=== PATIENT | female | born 1950 | race Caucasian/White ===

== ENCOUNTER 2019-10-13 08:30 | Outpatient (RCR) | payer MEDICAID, SELFPAY | END 2019-10-13 23:59 | disposition home or self-care (01) | LOC: ANHAUDIO 08:30 | PROVIDERS: PCP Physician Assistant; Visit Provider Physician Assistant | DX: Z46.1 Encounter for fitting and adjustment of hearing aid (principal) | CPT/HCPCS: 99199 ==

== ENCOUNTER 2020-02-04 08:44 | Outpatient (RCR) | payer MEDICAID, SELFPAY | END 2020-02-04 23:59 | disposition home or self-care (01) | LOC: ANHAUDIO 08:44 | PROVIDERS: PCP Physician Assistant; Visit Provider Physician Assistant | DX: Z46.1 Encounter for fitting and adjustment of hearing aid (principal) | CPT/HCPCS: 99199 ==

== ENCOUNTER 2020-09-17 12:06 | Outpatient (RCR) | payer MEDICAID, SELFPAY | END 2020-12-16 23:59 | disposition home or self-care (01) | LOC: ANHBWCAUD 12:06 | PROVIDERS: PCP Physician Assistant; Visit Provider Physician Assistant | DX: Z46.1 Encounter for fitting and adjustment of hearing aid (principal) | CPT/HCPCS: 99199 ==

== ENCOUNTER 2021-04-05 10:20 | Outpatient (RCR) | payer MEDICAID, SELFPAY | END 2021-07-04 23:59 | disposition home or self-care (01) | LOC: ANHBWCAUD 10:20 | PROVIDERS: PCP Physician Assistant; Visit Provider Physician Assistant | DX: Z46.1 Encounter for fitting and adjustment of hearing aid (principal) | CPT/HCPCS: 99199 ==

== ENCOUNTER 2022-02-21 11:11 | Outpatient (RCR) | payer MEDICARE, MEDICAID, SELFPAY | END 2022-05-22 23:59 | disposition home or self-care (01) | LOC: ANHBWCAUD 11:11 | PROVIDERS: PCP Physician Assistant; Visit Provider Physician Assistant | DX: Z46.1 Encounter for fitting and adjustment of hearing aid (principal) | CPT/HCPCS: V5014 ==

== ENCOUNTER 2022-07-11 09:43 | Outpatient (RCR) | payer MEDICARE, MEDICAID, SELFPAY | END 2022-10-09 23:59 | disposition home or self-care (01) | LOC: ANHBWCAUD 09:43 | PROVIDERS: PCP Physician Assistant; Visit Provider Otolaryngology | DX: Z46.1 Encounter for fitting and adjustment of hearing aid (principal); H91.93 Unspecified hearing loss, bilateral | CPT/HCPCS: 99199 ==

== ENCOUNTER 2023-01-23 13:20 | Outpatient (CLI) | payer MEDICARE, MEDICAID, SELFPAY | END 2023-01-23 13:21 | disposition home or self-care (01) | LOC: ANHBWCAUD 13:22 | PROVIDERS: PCP Physician Assistant; Visit Provider Otolaryngology | DX: H90.3 Sensorineural hearing loss, bilateral (principal) | CPT/HCPCS: 92557; 92567 ==

== ENCOUNTER 2023-02-06 13:30 | Outpatient (RCR) | payer SELFPAY | END 2023-04-23 23:59 | disposition home or self-care (01) | LOC: ANHBWCAUD 13:30 | PROVIDERS: PCP Physician Assistant; Visit Provider Otolaryngology | DX: Z46.1 Encounter for fitting and adjustment of hearing aid (principal) | CPT/HCPCS: 99199; V5261; V5264 ==

== ENCOUNTER 2024-03-11 08:30 | Outpatient (RCR) | payer MEDICARE, MEDICAID, SELFPAY | END 2024-04-01 23:59 | disposition home or self-care (01) | LOC: ANHBWCAUD 08:30 | PROVIDERS: PCP Physician Assistant; Visit Provider Physician Assistant | DX: Z46.1 Encounter for fitting and adjustment of hearing aid (principal) | CPT/HCPCS: 99199 ==